=== PATIENT | female | born 1985 | race Caucasian/White ===

== ENCOUNTER 2020-09-03 18:04 | Emergency (ER) | payer OTHER, SELFPAY ==
--- NOTE | ~2020-09-03 | XR_ITS ---
EXAMINATION: XR lumbar spine 2-3V DATE: 09/03/2020 19:37 INDICATION: Lumbar spine pain. TECHNIQUE: Anteroposterior and lateral views of the lumbar spine, and cone-down lateral view of the l umbosacral junction were obtained. COMPARISON: None. FINDINGS: Alignment is normal. Vertebral body heights are normal. Mild right-sided predominant disc height loss at L3-L4. Remaining disc heights are normal. Mild lower lumbar facet osteoarthritis. Sacrum and bila teral sacral iliac joints are normal. IMPRESSION: 1. Mild disc height loss at L3-L4. Reviewed, dictated and finalized at location A.
[2020-09-03 18:05] VITALS: BP 118/84; PULSE 109; RESP 17; TEMP 36.8; O2SAT 100
--- NOTE | 2020-09-03 19:23 | ED.BACK ---
HPI - Back Pain/Injury General Chief Complaint: Back Pain/Injury <Janis Xiong PA-C - Last Filed: 09/03/20 21:47> Stated Complaint: low back pain <CESARIO Barakat Last Filed: 09/03/20 21:47> Time Seen by Provider: 09/03/20 18:54 <CESARIO Barakat Last Filed: 09/03/20 21:47> Source: patient <CESARIO Barakat Last Filed: 09/03/20 21:47> Mode of arrival: ambulatory <CESARIO Barakat Last Filed: 09/03/20 21:47> Limitations: no limitations <CESARIO Barakat Last Filed: 09/03/20 21:47> History of Present Illness HPI Narrative: This is a 34 year old female that presents to the ER for low back pain x 4 days. No known injury or trauma. Pain is worse with movement and relieved with rest. She has been taking anti-inflammatories with little relief. Denies fever, abdominal pain, vomiting, dysuria, hematuria, weakness, or numbness. <CESAIRO Barakat Last Filed: 09/03/20 21:47> Related Data Allergies/Adverse Reactions: Allergies Allergy/AdvReac Type Severity Reaction Status Date / Time morphine Allergy Unknown hives Verified 09/03/20 18:48 poison alexandre extract Allergy Unknown reaction Verified 09/03/20 18:48 hydrocodone AdvReac Intermediate NAUSEA/VOMI Verified 09/03/20 18:48 TING <Janis Xiong PA-C - Last Filed: 09/03/20 21:47> Review of Systems Review of Systems: Narrative: CONSTITUTIONAL: Denies fever GASTROINTESTINAL: Denies abdominal pain, nausea, vomiting GENITOURINARY: Denies dysuria or hematuria. SKIN: Denies rash MUSCULOSKELETAL: Reports back pain, joint pain, and myalgia. NEUROLOGIC: Denies numbness, or weakness. <CESARIO Barakat Last Filed: 09/03/20 21:47> All systems reviewed & are unremarkable except as noted in HPI and below <CESARIO Barakat Last Filed: 09/03/20 21:47> PMFSH Family History Family History: Family History Grandparent Depression Hypertension Family history of cardiovascular disease Cerebrovascular accident Family history of throat cancer Sibling Family history of human immunodeficiency virus infection <Janis Xiong PA-C - Last Filed: 09/03/20 21:47> Social History Social History: Social History (Updated 09/03/20 @ 19:25 by Janis Xiong PA-C) Smoking status: Never smoker Alcohol intake: never Substance use: current Substance use type: marijuana Gender identity (if verbalized by the patient): Female <Janis Xiong PA-C - Last Filed: 09/03/20 21:47> Exam Narrative: Exam Narrative: GENERAL: Well-appearing, well-nourished, and in no acute distress. HEAD: Normocephalic, atraumatic. EYES: EOMI. CHEST: Clear to auscultation. No respiratory distress. No wheezes rales or rhonchi HEART: Regular rate and rhythm. No murmur heard. Normal peripheral pulses. ABDOMEN: Soft, nontender, nondistended, normal active bowel sounds. BACK: No midline spinal tenderness EXTREMITIES: Normal range of motion. No edema. SKIN: Warm, dry, no rash. NEURO: No focal deficits. Alert and oriented x3. Normal gait PSYCH: Normal mood and affect <Janis Xiong PA-C - Last Filed: 09/03/20 21:47> Course Vital Signs Vital signs: Vital Signs Temperature 36.8 C 09/03/20 18:05 Pulse Rate 109 H 09/03/20 18:05 Respiratory Rate 17 09/03/20 18:05 Blood Pressure 118/84 09/03/20 18:05 Pulse Oximetry 100 09/03/20 18:05 Temperature 36.8 C 09/03/20 18:05 Pulse Rate 62 09/03/20 22:10 Respiratory Rate 18 09/03/20 22:10 Blood Pressure 141/68 H 09/03/20 22:10 Pulse Oximetry 98 09/03/20 22:10 <Janis Xiong PA-C - Last Filed: 09/03/20 21:47> Vital Signs Temperature 36.8 C 09/03/20 18:05 Pulse Rate 109 H 09/03/20 18:05 Respiratory Rate 17 09/03/20 18:05 Blood Pressure 118/84 09/03/20 18:05 Pulse Oximetry 100 09/03/20 18:05 Temperature 36.8 C 04
[2020-09-03] MEDS: ACETAMINOPHEN 500 MG TABLET 1000 MG PO (19:59)
[2020-09-03] MEDS: diazePAM INJ (*CRX) 10 MG/2 ML SYRINGE 5 MG IM (20:01)
--- NOTE | 2020-09-03 20:09 | PC.NURSE ---
extra tylenol removed from pyxis. dropped first tablet.
[2020-09-03 20:41] VITALS: BP 98/55; PULSE 67; RESP 16; O2SAT 98
[2020-09-03] MEDS: KETOROLAC (*BKC) 60 MG/2 ML VIAL IM (21:01)
[2020-09-03 22:10] VITALS: BP 141/68; PULSE 62; RESP 18; O2SAT 98
== END 2020-09-03 22:09 | disposition home or self-care (01) ==
PROVIDERS: Emergency Provider Emergency Medicine; PCP Family Medicine
DX: M54.16 Radiculopathy, lumbar region (principal)
CPT/HCPCS: 72100; 81025; 96372; 99284; A9270; J1885; J3360

== ENCOUNTER 2021-06-07 10:11 | Emergency (ER) | payer OTHER, SELFPAY ==
[2021-06-07 10:23] VITALS: BP 109/63; PULSE 86; RESP 12; TEMP 37.2; O2SAT 100
--- NOTE | 2021-06-07 10:49 | ED.GENADULT ---
HPI - General Adult General Chief complaint: Eye Problems Stated complaint: lt eye irritated Source: patient Mode of arrival: ambulatory Limitations: no limitations History of Present Illness HPI narrative: Pt presents for evaluation of left eye irritation since this morning. She states she woke from sleep with redness and tearing. She states she had a corneal abrasion in the past and felt like she had sandpaper in the eye at that time. She does not have that sensation presently. She feels like her eye is bruised . She has photophobia but denies visual disturbance. She does wear contacts and removed them this morning. Related Data Allergies Allergy/AdvReac Type Severity Reaction Status Date / Time morphine Allergy Unknown hives Verified 06/07/21 10:24 poison alexandre extract Allergy Unknown reaction Verified 06/07/21 10:24 hydrocodone AdvReac Intermediate NAUSEA/VOMI Verified 06/07/21 10:24 TING Review of Systems Review of Systems: CONSTITUTIONAL: Denies fever, chills, or sweats. EYES: Reports redness to left eye with associated tearing and photophobia. Denies visual disturbance. ENT: Denies rhinorrhea, congestion, sore throat, or otalgia. CARDIOVASCULAR: Denies chest pain, palpitations, or edema. RESPIRATORY: Denies cough or dyspnea. GASTROINTESTINAL: Denies abdominal pain, nausea, vomiting, or diarrhea. GENITOURINARY: Denies dysuria or hematuria. SKIN: Denies rash or itching. MUSCULOSKELETAL: Denies back pain, joint pain, or myalgia. NEUROLOGIC: Denies headache, numbness, dizziness, or weakness. PSYCHIATRIC: Denies anxiety or depression. [facility] Past Medical History Medical History No pertinent past medical history Surgical History Surgical History History of delivery History of oophorectomy History of salpingectomy History of tubal ligation Family History Family History Grandparent Depression Hypertension Family history of cardiovascular disease Cerebrovascular accident Family history of throat cancer Sibling Family history of human immunodeficiency virus infection Social History Social History Smoking status: Never smoker Alcohol intake: never Substance use: current Substance use type: marijuana Gender identity (if verbalized by the patient): Female Spiritual care concerns: No Exam Narrative: GENERAL: Well-appearing, well-nourished, and in no acute distress. HEAD: Normocephalic, atraumatic. EYES: PERRLA and EOMI. Left conjunctival injection with associated tearing. There are several linear areas of dye uptake noted at 4-7 o'clock positions of left eye with evaluated with fluorescein and Wood's lamp ENT: Nares clear, no rhinorrhea or epistaxis. Mucous membranes moist. Oropharynx without tonsillar hypertrophy exudate or other lesions. Bilateral TMs pearly león nonbulging NECK: Supple. No adenopathy or masses. No carotid bruits or JVD CHEST: Clear to auscultation. No respiratory distress. No wheezes rales or rhonchi HEART: Regular rate and rhythm. No murmur heard. Normal peripheral pulses. ABDOMEN: Soft, nontender, nondistended, normal active bowel sounds. EXTREMITIES: Normal range of motion. No edema. SKIN: Warm, dry, no rash. NEURO: No focal deficits. Alert and oriented x3. PSYCH: Normal mood and affect. Course Course Emergency Course: This is a 35-year-old female appears with complaints of left eye irritation and redness. Exam with Bee lamp reveals linear areas of dye uptake consistent with corneal abrasions. We will treat with otic antibiotic. Patient should keep contact lenses out for now. She should follow-up outpatient for further evaluation and treatment and return for worsening symptoms. Patient agreed with plan of care. Margaret
[2021-06-07] MEDS: PROPARACAINE HCL 0.5% 15 ML OPHTH SOLN 1 DROP EACH EYE (11:05)
[2021-06-07] MEDS: BALANCED SALT SOLN OPHTH IRRIG 30 ML BTL 5 ML LEFT EYE (11:08)
[2021-06-07] MEDS: FLUORESCEIN SOD 1 MG/STRIP EACH EYE (11:08)
[2021-06-07] MEDS: TETRACAINE HCL 0.5% OPHTH SOLN 4 ML BTL 1 DROP LEFT EYE (11:09)
== END 2021-06-07 11:17 | disposition home or self-care (01) ==
PROVIDERS: Emergency Provider Nurse Practitioner; PCP Family Medicine
DX: S05.02XA Injury of conjunctiva and corneal abrasion without foreign body, left eye, initial encounter (principal); X58.XXXA Exposure to other specified factors, initial encounter
CPT/HCPCS: 99213; A9270; G0463

== ENCOUNTER 2022-02-27 16:44 | Emergency (ER) | payer OTHER, SELFPAY ==
[2022-02-27 17:13] VITALS: BP 100/54; PULSE 84; RESP 16; TEMP 37.2; O2SAT 100
--- NOTE | 2022-02-27 17:19 | ED.BACK ---
HPI - Back Pain/Injury General Chief Complaint: Back Pain/Injury Stated Complaint: BACK PAIN Time Seen by Provider: 02/27/22 17:20 Source: patient Mode of arrival: ambulatory Limitations: no limitations History of Present Illness HPI Narrative: Ms. Pennington is a 36-year-old female patient presenting to the clinic today with complaints of right-sided low back pain. She reports she was at work today and picked up 3 small shoe boxes and felt a pop in her back. She reports the pain was sharp and stabbing at that time. Only can reproduce the pain with movement at this time. States while she is just sitting still there is no pain. Reports she has had history of bulging disc in the past. She denies any saddle anesthesia or loss of bowel or bladder Related Data Allergies Allergy/AdvReac Type Severity Reaction Status Date / Time morphine Allergy Unknown hives Verified 02/27/22 17:18 poison alexandre extract Allergy Unknown reaction Verified 02/27/22 17:18 hydrocodone AdvReac Intermediate NAUSEA/VOMI Verified 02/27/22 17:18 TING Review of Systems Review of Systems: Pertinent positives per HPI. Patient denies any fever, chills, rash, headache, visual changes, dizziness, cough, runny nose, sore throat, shortness of breath, chest pain, palpitations, nausea, vomiting, diarrhea, constipation, abdominal pain, or any urinary issues. [facility] Surgical History Surgical History History of delivery History of oophorectomy History of salpingectomy History of tubal ligation Family History Family History Grandparent Depression Hypertension Family history of cardiovascular disease Cerebrovascular accident Family history of throat cancer Sibling Family history of human immunodeficiency virus infection Social History Social History Social History: Caffeine- lots Smoking status: Never smoker Alcohol intake: current Alcohol use details: Seldom Substance use: current Substance use type: marijuana Gender identity (if verbalized by the patient): Female Spiritual care concerns: No Comments At the time of my signature, I reviewed and agree with the nursing past medical, surgical, social, and family history. There is no relevant family history pertinent to the patient complaint. Exam Narrative: General: Well-developed, well nourished, in no apparent distress Head: Normocephalic, atraumatic. Cardio: Regular rate and rhythm, s1 and s2 normal, no murmur appreciated. Resp: Clear to auscultation bilaterally, no rhonchi, rales, wheezing or rubs. Musculoskeletal: No deformity, mild tender to palpation over the paraspinous muscle to the right low back, pain with flexion and extension of the low back, grossly normal range of motion, patellar reflexes 2+ bilaterally, negative foot drop, negative straight leg test, bilateral lower muscle strength strong and equal, peripheral pulse strong, no edema, no cyanosis, normal gait and station Course Course Emergency Course: Portions of this record may have been created with voice recognition software. Level of Care: Express Care Visit Vital Signs Vital signs: Vital Signs Temperature 37.2 C 02/27/22 17:13 Pulse Rate 84 02/27/22 17:13 Respiratory Rate 16 02/27/22 17:13 Blood Pressure 100/54 L 02/27/22 17:13 Pulse Oximetry 100 02/27/22 17:13 Temperature 37.2 C 02/27/22 17:13 Pulse Rate 84 02/27/22 17:13 Respiratory Rate 16 02/27/22 17:13 Blood Pressure 100/54 L 02/27/22 17:13 Pulse Oximetry 100 02/27/22 17:13 Vital signs reviewed MDM - Back Pain/Injury MDM Narrative Medical decision making narrative: At the time of visit patient is resting comfortably on the exam table. I suspect the patient has a back strain. Supportive measures were discussed with the
== END 2022-02-27 17:28 | disposition home or self-care (01) ==
PROVIDERS: Emergency Provider Nurse Practitioner Family; PCP Emergency Medicine
DX: S39.012A Strain of muscle, fascia and tendon of lower back, initial encounter (principal); X50.9XXA Other and unspecified overexertion or strenuous movements or postures, initial encounter; Y99.0 Civilian activity done for income or pay
CPT/HCPCS: 99213; G0463

== ENCOUNTER 2023-08-19 09:09 | Emergency (ER) | payer OTHER, SELFPAY ==
[2023-08-19 09:24] VITALS: BP 88/54; PULSE 70; RESP 16; TEMP 36.9; O2SAT 100
--- NOTE | 2023-08-19 09:31 | ED.BACK ---
HPI - Back Pain/Injury General Chief Complaint: Back Pain/Injury Stated Complaint: BACK PAIN Time Seen by Provider: 08/19/23 09:31 Source: patient Mode of arrival: ambulatory Limitations: no limitations History of Present Illness HPI Narrative: 37 y/o female presented for c/o low back pain occasionally radiating to the right hip for 2 days. States she 'tweaked' her back when standing up from a squatted position while at work. Taking ibuprofen, using back brace, pain cream and heating pad. Denies numbness, tingling, weakness of the lower extremities, or change in gait, saddle paresthesia or loss of bowel or bladder. Related Data Allergies Allergy/AdvReac Type Severity Reaction Status Date / Time morphine Allergy Unknown hives Verified 08/19/23 09:23 poison alexandre extract Allergy Unknown reaction Verified 08/19/23 09:23 hydrocodone AdvReac Intermediate NAUSEA/VOMI Verified 08/19/23 09:23 TING Review of Systems Review of Systems: CONSTITUTIONAL: Denies body aches, fever, chills EYES: Denies visual changes CARDIOVASCULAR: Denies chest pain, palpitations, or edema. RESPIRATORY: Denies cough or dyspnea. GASTROINTESTINAL: Denies abdominal pain, nausea, vomiting, or diarrhea. SKIN: Denies rash, itching, or wounds. MUSCULOSKELETAL: reports back pain NEUROLOGIC: Denies headache, numbness, tingling, or weakness. All systems reviewed & are unremarkable except as noted in HPI and below PMFSH Surgical History Surgical History History of delivery History of oophorectomy History of salpingectomy History of tubal ligation Family History Family History Grandparent Depression Hypertension Family history of cardiovascular disease Cerebrovascular accident Family history of throat cancer Sibling Family history of human immunodeficiency virus infection Social History Social History Social History: Caffeine- lots Smoking status: Never smoker Alcohol intake: current Alcohol use details: Seldom Substance use: current Substance use type: marijuana Gender identity (if verbalized by the patient): Female Spiritual care concerns: No Comments At time of signature, I have reviewed and agree with nursing past medical, surgical, social and family history unless otherwise noted. Please see nursing chart for further information. There is no relevant family history pertinent to the presenting complaint Exam Narrative: GENERAL: Well-appearing CHEST: Speaks in full sentences. No respiratory distress. HEART: Regular rate and rhythm. Normal and equal peripheral pulses. MUSC: Pt reports mild right lumbar para spinal tenderness, and tenderness into the right posterior hip with palpation. No Vertebral point tenderness. BLEs with normal strength and sensation, normal range of motion. No ecchymosis, No open wounds, or obvious deformity; alignment normal, pulse palpable and equal bilaterally, skin warm, dry, pink. Capillary refill less than 3 seconds. Gait steady. SKIN: Warm, dry, no rash. NEURO: Alert and oriented x3. Back/Spine/Pelvis: Back/spine/pelvis image: 1. location of reported pain Course Course Emergency Course: Patient is aware of diagnosis, understands and agrees to treatment plan. Anticipatory guidance given. Patient agrees to follow-up as directed and is aware of reasons to seek care at the emergency department. Portions of this record may have been created with voice recognition software Level of Care: Express Care Visit Vital Signs Vital signs: Vital Signs Temperature 98.5 F 08/19/23 09:24 Pulse Rate 70 08/19/23 09:24 Respiratory Rate 16 08/19/23 09:24 Blood Pressure 88/54 L 08/19/23 09:24 Pulse Oximetry 100 08/19/23 09:24 Temperature 98.5 F 08/19/23 09:24 Pulse Rate 70 08/19/23 09:24 Res
== END 2023-08-19 09:45 | disposition home or self-care (01) ==
PROVIDERS: Emergency Provider Nurse Practitioner Family; PCP Emergency Medicine
DX: M54.16 Radiculopathy, lumbar region (principal); F12.90 Cannabis use, unspecified, uncomplicated
CPT/HCPCS: 99213; G0463